=== PATIENT | male | born 1965 | race Caucasian/White ===

== ENCOUNTER 2016-10-01 12:09 | Outpatient (CLI) | payer OTHER ==
--- NOTE | 2016-10-01 13:50 | DIAGNOSTIC IMAGING REPORT ---
PROCEDURE: MR UPPER EXTREMITY W/O CONT-LT INDICATION: Left shoulder pain. Osteoarthritis. TECHNIQUE: PD and FAT-SAT PD, axial, and coronal-oblique images. PD and STIR sagittal-oblique images. COMPARISON: Compared to radiographs of the left shoulder from [facility] on 06/30/2016. FINDINGS: There are severe osteoarthritic changes of the left glenohumeral joint with severe joint space narrowing, and degeneration of the cartilaginous labrum. Findings are associated with a large joint effusion with multiple loose bodies. This is associated generalized atrophic tendinosis of the rotator cuff with intrasubstance tears in the rotator interval tear. However, there is no definite evidence of full-thickness tear. Findings are also associated with chronic elevation of the humeral head with moderate impingement. There are mild degenerative changes of the left acromioclavicular joint. There is no evidence of coracoid impingement. There is moderate fluid in the bicipital tendon sheath. Biceps tendon appears intact. IMPRESSION: 1. Severe osteoarthritic changes of the left glenohumeral joint with degeneration of the cartilaginous labrum. 2. Associated large joint effusion with multiple loose bodies associated with rotator interval tear with this synovial cysts protruding into the subcoracoid/subscapular recess. 3. 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 4. Chronic elevation of the humeral head with moderate impingement. 5. Mild degenerate change of the left acromioclavicular joint.
== END 2016-10-01 23:00 ==
LOC: MRI SRH 12:09
DX: M19.012 Primary osteoarthritis, left shoulder (principal); M25.412 Effusion, left shoulder; M24.012 Loose body in left shoulder; M75.102 Unspecified rotator cuff tear or rupture of left shoulder, not specified as traumatic; M71.312 Other bursal cyst, left shoulder; M75.42 Impingement syndrome of left shoulder